=== PATIENT | male | born 1955 | race Asian ===

== ENCOUNTER 2021-04-04 22:52 | Emergency (ER) | payer OTHER ==
[~2021-04-04] VITALS: Ht 170.2 cm; Wt 75.8 kg
[2021-04-04 22:52] VITALS: BP 131/90; TEMP 97.9
[2021-04-04 23:32] LABS: PLATELET COUNT 195 K/uL (142-355)
[2021-04-04 23:40] LABS: POTASSIUM 4.1 mmol/L (3.6-5.2)
[2021-04-05] MEDS ORDERED: ZIPRASIDONE HYD40 MG PO (00:52)
[2021-04-05] MEDS ORDERED: XALATAN0.005 % OPTH (00:54)
[2021-04-05] MEDS ORDERED: LORA1TAB17 PO (00:55)
[2021-04-05] MEDS ORDERED: MOBIC15 MG PO (00:59)
[2021-04-05] MEDS ORDERED: MEMA5TAB PO (01:01)
[2021-04-05] MEDS ORDERED: QUET25TA2 PO (01:03)
[2021-04-05] MEDS ORDERED: DIVA125C PO (01:06)
[2021-04-05] MEDS ORDERED: FAMO20TA4 PO (01:07)
[2021-04-05] MEDS ORDERED: DOCU SOFT100 MG PO (01:08)
[2021-04-05] MEDS ORDERED: AMLODIPINE BESYLATE PO (01:09)
== END 2021-04-05 00:04 | disposition still patient (30) ==
LOC: ED 22:52
PROVIDERS: Hospitalist
DX: F03.91 Unspecified dementia, unspecified severity, with behavioral disturbance (principal); Z11.52 Encounter for screening for COVID-19; Z04.6 Encounter for general psychiatric examination, requested by authority
CPT/HCPCS: 36415; 80053; 85027; 87635; 93005; 99283; U0003